=== PATIENT | female | born 1980 | race Asian ===

== ENCOUNTER 2021-09-09 15:33 | Outpatient (CLI) | payer BC ==
[2021-09-09 16:46] LABS: Hemoglobin 13.3 g/dL (12.0-15.5); Mean Corpuscular HGB CONC 31.7 g/dL (32.0-36.0); Mean Corpuscular Hemoglobin 25.9 pg (27.0-33.0); Mean Corpuscular Volume 81.7 fl (81.6-98.3); Mean Platelet Volume 9.5 fl (7.4-10.4); Platelet Count 298 10x3/uL (150-450); RBC Distribution Width 13.2 % (11.5-14.5); Red Blood Cell (RBC) Count 5.13 10x6/uL (3.90-5.03); White Blood Cell (WBC) Count 6.3 10x3/uL (3.5-10.5)
[2021-09-10 16:23] LABS: SARS-CoV-2 PCR by NAA Not Detected (NotDetected)
== END 2021-09-09 15:34 | disposition home or self-care (01) ==
LOC: CSHLAB 15:33
PROVIDERS: ATTEND Student in an Organized Health Care Education/Training Program
DX: Z01.812 Encounter for preprocedural laboratory examination (principal); Z20.822 Contact with and (suspected) exposure to COVID-19
CPT/HCPCS: 85027; 86850; 86900; 86901; U0003; U0005

== ENCOUNTER 2021-09-11 09:57 | Day surgery (SDC) | payer BC ==
[2021-09-09 15:47] VITALS: BMI 23.2
[2021-09-11] MEDS ORDERED: CeleCOXIB 100 MG CAP ONE (10:27)
[2021-09-11] MEDS ORDERED: Lidocaine 1% MPF 2 ML VIAL ONE (10:29)
[2021-09-11] MEDS ORDERED: SODIUM CHLORIDE IVPB SCH (11:00)
[2021-09-11] MEDS ORDERED: DOXYCYCLINE HYCLATE IVPB SCH (11:00)
[2021-09-11] MEDS ORDERED: ADMIXTURE FEE IVPB SCH (11:00)
[2021-09-11] MEDS ORDERED: Midazolam HCl 2 mg/2 ml Vial ONE (11:57)
[2021-09-11] MEDS ORDERED: PROPOFOL 20 ML ONE (11:59)
[2021-09-11] MEDS ORDERED: Fentanyl 100 MCG/2 ML VIAL ONE (11:59)
[2021-09-11] MEDS ORDERED: Lidocaine 1% PF 5 ML VIAL ONE (11:59)
[2021-09-11] MEDS ORDERED: Dexamethasone 4 mg/ml Vial ONE (11:59)
[2021-09-11] MEDS ORDERED: Ondansetron PF 4 MG/2 ML Vial ONE (11:59)
== END 2021-09-11 14:30 | disposition home or self-care (01) ==
LOC: CSHSDC 09:57
PROVIDERS: ATTEND Student in an Organized Health Care Education/Training Program
PROC: 10D17ZZ Extraction of Products of Conception, Retained, Via Natural or Artificial Opening (ICD-10-PCS; principal; 2021-09-11)
DX: O02.1 Missed abortion (principal); G43.909 Migraine, unspecified, not intractable, without status migrainosus
CPT/HCPCS: 88305; J1100; J2250; J2405; J2704; J3010; J7050

== ENCOUNTER 2023-09-28 13:14 | Outpatient (CLI) | payer OTHER | END 2023-09-28 13:15 | disposition home or self-care (01) | LOC: CSHMAMMO 13:14 | PROVIDERS: ATTEND Obstetrics & Gynecology | DX: R92.8 Other abnormal and inconclusive findings on diagnostic imaging of breast (principal) | CPT/HCPCS: G0279 ==